=== PATIENT | male | born 1945 | race Two or more races ===

== ENCOUNTER 2016-11-16 08:51 | Day surgery (SDC) | payer MEDICARE, OTHER ==
[~2016-11-16] VITALS: Ht 167.6 cm; Wt 72.6 kg
[2016-11-16] VITALS (9 sets, daily range): BP systolic 140–170; BP diastolic 78–94
[~2016-11-16 08:51] MED LIST: ALLOPURINOL100 M1 ORAL; AMLODIPINE PO; HYDROCHLOROTHIA25 MG ORAL
[2016-11-16] MEDS ORDERED: Lidocaine 1% Plain 30 ml INJ ONE (09:40)
[2016-11-16] MEDS ORDERED: Bacitracin Oint 15gm Tube TOPIC ONE (09:40)
[2016-11-16] MEDS ORDERED: Dexamethasone 4mg/ml vial ONE (09:40)
[2016-11-16] MEDS ORDERED: Betadine 10% Oint 15gm TOPIC ONE (09:40)
[2016-11-16] MEDS ORDERED: Bupivacaine 0.5% Inj 30 ml vial INJ ONE (09:41)
[2016-11-16 09:43] LABS: EOSINOPHILS % (AUTO) 6.5 % (0.0-3.0); LYMPHOCYTES % (AUTO) 28.6 % (20.0-45.0); MEAN CORPUSCULAR HEMOGLOBIN 29.1 PG (27.0-31.0); MEAN CORPUSCULAR HGB CONC 32.9 G/DL (32.0-36.0); MEAN CORPUSCULAR VOLUME 89 FL (80-99); MEAN PLATELET VOLUME 9.2 FL (6.5-10.1); MONOCYTES % (AUTO) 8.3 % (1.0-10.0); NEUTROPHILS % (AUTO) 53.6 % (45.0-75.0); PLATELET COUNT 230 K/UL (150-450); RED CELL DISTRIBUTION WIDTH 13.2 % (11.6-14.8); WHITE BLOOD COUNT 6.1 K/UL (4.8-10.8)
[2016-11-16] MEDS ORDERED: fentaNYL 100 mcg/2 mL IV ONE (09:45)
[2016-11-16] MEDS ORDERED: Midazolam 2mg/2ml Inj ONE (09:45)
[2016-11-16] MEDS ORDERED: LR 1000ml ONE (09:45)
[2016-11-16] MEDS ORDERED: Sterile Water Irrig 1000ml IRRIG ONE (09:45)
[2016-11-16] MEDS ORDERED: Propofol 10mg/ml 20ml IV ONE (09:45)
[2016-11-16 09:54] LABS: ANION GAP 14 (5-15); CALCIUM 9.8 mg/dL (8.6-10.2); CARBON DIOXIDE 22 mEQ/L (20-30); CHLORIDE 99 mEQ/L (98-107); CREATININE 1.6 mg/dL (0.7-1.2); HEMOLYSIS 83; POTASSIUM 4.6 mEQ/L (3.4-4.9); SODIUM 135 mEQ/L (135-145)
[2016-11-16] MEDS ORDERED: NS Irrig 1000ml IRRIG ONE (10:00)
--- NOTE | 2016-11-16 10:10 | Pre-Procedure Note/Attestation ---
Pre-Procedure Note/Attestation Complete Prior to Procedure Planned Procedure: right Procedure Narrative: Bunionectomy with great toe implant right foot Indications for Procedure Pre-Operative Diagnosis: Hallux Rigidus right Attestation I attest that I discussed the nature of the procedure; its benefits; risks and complications; and alternatives (and the risks and benefits of such alternatives ), prior to the procedure, with the patient (or the patient's legal it sales representative). I attest that, if there was a reasonable possibility of needing a blood transfusion, the patient (or the patient's legal it sales representative) was given the [facility] standardized written summary, pursuant to the [facility] Blood Safety Act ([place] Health and Safety Code # 1645, as amended). I attest that I re-evaluated the patient just prior to the surgery and that there has been no change in the patient's H&P, except as documented below: LUZ ELENA CORTEZ Nov 16, 2016 10:10
--- NOTE | 2016-11-16 10:48 | Anethesia Preoperative Eval ---
Anesthesia Pre-op PMH/ROS General Date of Evaluation: Nov 16, 2016 Time of Evaluation: 09:30 Anesthesiologist: JULEE ASA Score: ASA 1 Mallampati Score Class I : Soft palate, uvula, fauces, pillars visible Class II: Soft palate, uvula, fauces visible Class III: Soft palate, base of uvula visible Class IV: Only hard plate visible Mallampati Classification: Class I Allergies: Coded Allergies: No Known Allergies (Unverified , 11/15/16) Anesthesia Pre-op Phys. Exam Physician Exam Last Vital Signs Date Time Temp Pulse Resp B/P Pulse Ox O2 Delivery O2 Flow Rate FiO2 11/16/16 09:29 97.9 78 18 170/90 99 Room Air Anesthesia Pre-op A/P Labs Hematology Test 11/16/16 09:24 White Blood Count 6.1 K/UL (4.8-10.8) Red Blood Count 4.70 M/UL (4.70-6.10) Hemoglobin 13.7 G/DL (14.2-18.0) L Hematocrit 41.7 % (42.0-52.0) L Mean Corpuscular Volume 89 FL (80-99) Mean Corpuscular Hemoglobin 29.1 PG (27.0-31.0) Mean Corpuscular Hemoglobin Concent 32.9 G/DL (32.0-36.0) Red Cell Distribution Width 13.2 % (11.6-14.8) Platelet Count 230 K/UL (150-450) Mean Platelet Volume 9.2 FL (6.5-10.1) Neutrophils (%) (Auto) 53.6 % (45.0-75.0) Lymphocytes (%) (Auto) 28.6 % (20.0-45.0) Monocytes (%) (Auto) 8.3 % (1.0-10.0) Eosinophils (%) (Auto) 6.5 % (0.0-3.0) H Basophils (%) (Auto) 3.0 % (0.0-2.0) H Chemistry Test 11/16/16 09:30 Sodium Level 135 mEQ/L (135-145) Potassium Level 4.6 mEQ/L (3.4-4.9) Chloride Level 99 mEQ/L (98-107) Carbon Dioxide Level 22 mEQ/L (20-30) Anion Gap 14 (5-15) Blood Urea Nitrogen 22 mg/dL (7-23) Creatinine 1.6 mg/dL (0.7-1.2) H Estimat Glomerular Filtration Rate mL/min (>60) Glucose Level 103 mg/dL (74-106) Calcium Level 9.8 mg/dL (8.6-10.2) Trevin Jones MD Nov 16, 2016 10:48
[2016-11-16] MEDS ORDERED: fentaNYL 100 mcg/2 mL IV PRN (11:00)
[2016-11-16] MEDS ORDERED: Ketorolac 30mg Inj IV PRN (11:00)
--- NOTE | 2016-11-16 11:54 | Immediate Post-Op Evaluation ---
Immediate Post-Op Evalulation Immediate Post-Op Evalulation Procedure: R Bunionectomy Date of Evaluation: Nov 16, 2016 Time of Evaluation: 12:00 Estimated Blood Loss: min Nausea: No Vomiting: No Patient Status: awake Hydration Status: adequate Given Within 1 Hr of Incision: Yes Trevin Jones MD Nov 16, 2016 11:54
--- NOTE | 2016-11-16 11:56 | Brief Operative Note ---
Immediate Post Operative Note Operative Note Pre-op Diagnosis: Hallux Rigidus right Procedure: Bunionectomy with great toe implant right foot Post-op Diagnosis: same as pre-op Surgeon: Roe Anesthesiologist: Robert Anesthesia: MAC Specimen: yes Complications: none Condition: stable Estimated Blood Loss: none Drains: none Implant(s) used?: Yes LUZ ELENA CORTEZ Nov 16, 2016 11:56
--- NOTE | 2016-11-16 13:15 | History and Physical Report ---
DATE OF ADMISSION: 11/16/2016 INTERNAL MEDICINE HISTORY AND PHYSICAL REASON FOR EVALUATION: I was asked by Dr. Mehrdad Au, to see this 71-year-old male, who is going for elective surgery on the right foot. The patient has a bunion right foot. The patient was evaluated. Chart was reviewed. PAST MEDICAL HISTORY/REVIEW OF SYSTEMS: Remarkable for history of hypertension, history of gout and degenerative joint disease. The patient has history of stroke and seizures. No history of GI bleeding, liver insufficiency or hepatitis. No history of heart attack. No diabetes mellitus. Denies history of respiratory problem. No renal failure. No prostate problem. PAST SURGICAL HISTORY: Right hip surgery six months ago. MEDICATIONS: Present medications include hydrochlorothiazide 25 mg, allopurinol 100 mg daily, amlodipine also vitamin D and sleeping pills. ALLERGIES: Not known. HABITS: The patient denies history of smoke or alcohol habits. FAMILY HISTORY: Mother has hypertension. Father when patient was 1-year-old. PHYSICAL EXAMINATION: GENERAL: Alert, well-developed, well-nourished male in his 70s, no acute distress. His BMI is 25 kg/m2. The patient is alert, no distress. VITAL SIGNS: Blood pressure on two measurements 170/90, and last one 156/80, the patient is 5 feet 6 inches, and weight 154 pounds. The patient's temperature 97.9 degrees, pulse 78, regular, and O2 saturation 99% on room air. SKIN: Clear and warm. No rashes. No diaphoresis. LYMPHATICS: Lymph nodes not enlarged. HEENT: Head, normocephalic and atraumatic. Ears, clear. Eyes, PERRLA. Extraocular muscles intact. No jaundice or conjunctivitis. Mouth, clear and moist without dentures. Mucous moist and clear. NECK: No jugular venous distention. Carotids artery +2. Trachea midline. CHEST: No deformity or asymmetry. LUNGS: Clear to auscultation percussion. No rales or rhonchi. HEART: Sinus rhythm. No ectopy. No murmur. No S3 or S4. ABDOMEN: Soft. Liver and spleen not enlarged. No rebound. EXTREMITIES: Bunions deformities. Full description per Dr. Mehrdad Au. No peripheral edema. Peripheral pulses equal intact. No varicose veins or calf tenderness. GENITOURINARY TRACT: No CVA tenderness. No dysuria. CENTRAL NERVOUS SYSTEM: No peripheral tremor. No asymmetry. No nystagmus. LABORATORY AND DIAGNOSTIC DATA: Electrocardiogram done shows sinus rhythm, nonspecific ST and T-wave abnormality. Laboratory work pending. The patient's last p.o. intake 7 p.m. yesterday IMPRESSION: 1. Bunion deformity, right foot. 2. Gout. 3. Hypertension. PLAN: Bunionectomy implant on right foot by Dr. Mehrdad Au. CONCLUSION: The patient has history of hypertension, gout. The patient's weight is stable. She did not eat or drink from last night. The patient has no allergies to medication or food. The patient's condition optimized for surgery. Thank you very much, Dr. Au, for privilege to participate presurgical care of this interesting patient. Maliha Lozoya M.D. DR: Nyla JOB#: [id number] CC:
--- NOTE | 2016-11-16 15:20 | Diagnostic Imaging Report ---
Indication: Pain Comparison: None Findings: 3 views of the right foot were obtained. Resection of the first MTP joint with placement of a Silastic implant noted. Alignment is unremarkable. The bones are osteopenic. Marginal spurs noted in the midfoot and narrowing/spur formation involving several interphalangeal joints noted. Impression: Postop confirmation films
--- NOTE | 2016-11-16 17:50 | Cardiology Report ---
APPROVED REPORT EKG Measurement Heart [id number] OR [id number] Normal sinus rhythm Nonspecific ST and T wave abnormality Abnormal ECG
--- NOTE | 2016-11-16 20:46 | History and Physical Report ---
DATE OF ADMISSION: 11/16/2016 PODIATRIC HISTORY AND PHYSICAL HISTORY OF PRESENT ILLNESS: This is a 71-year-old, white male who was admitted today for an outpatient bunionectomy of his right foot. The patient has been under my care for the past few months. He has been complaining of pain and inability to move his great toe joint on both feet. His conservative care, which is consisted of change in shoe gear resulted in no alleviation of pain and discomfort. PAST MEDICAL HISTORY: Remarkable for hypertension. He underwent right hip replacement approximately 6 months go. MEDICATIONS: Allopurinol, hydrochlorothiazide, and amlodipine. ALLERGIES: None. PODIATRIC EXAMINATION: Reveals an antalgic gait. VASCULAR SUPPLY: Dorsalis pedis and posterior tibial arteries are measuring 1/4 bilaterally. The capillary filling time is less than 5 seconds to all digits bilaterally. Homans sign is negative. Mild varicosities are noted in bilateral lower extremities. NEUROLOGICAL EXAMINATION: Reflexes, Achilles and patellar measuring 2/4 bilaterally. The sensation proprioception and vibrations sensation are all intact bilaterally. Clonus is absent. Babinski is negative in bilateral lower extremity. MUSCULOSKELETAL EXAMINATION: Reveals bunion deformity bilaterally. Hallux range of motion is almost zero bilaterally. Pain is noted to palpation over the first ray. Range of motion of all the lesser toe joints are reduced at the level of the metatarsophalangeal joint and mid tarsal and subtalar joint. No crepitation is noted. DERMATOLOGICAL EXAMINATION: Reveals atrophic skin without lesions or scars bilaterally. All nails are present and healthy bilaterally. ASSESSMENT: Hallux rigidus bilaterally. PLAN: The patient is admitted today for bunionectomy with great toe implant on the right foot. Risk, complications and alternatives were discussed with the patient. Postoperative instructions were given. Postoperative medications were dispensed to the patient. The patient elects to proceed with surgery. Mehrdad Au D.P.M. DR: CHAPARRITA JOB#: [id number] CC:
--- NOTE | 2016-11-16 21:01 | Operative Note - Dictated ---
DATE OF OPERATION: 11/16/2016 SURGEON: Mehrdad Au D.P.M. ANESTHESIOLOGIST: Trevin Lee M.D. ANESTHESIA: Local standby. PREOPERATIVE DIAGNOSIS: Hallux rigidus, right foot. POSTOPERATIVE DIAGNOSES: 1. Hallux rigidus, right foot. 2. Tophaceous gout, right first metatarsophalangeal joint. PROCEDURE PERFORMED: 1. Bunionectomy with a Primus flexible great toe implant, right foot. 2. Excision of tophaceous gout, right foot. DESCRIPTION OF THE OPERATION: The patient was brought to the operating room and was placed on the operating room table in the supine position. Intravenous sedation was administered by the anesthesiologist. Local anesthesia consisting of 20 mL of 0.5% Marcaine plain was administered to the right hallux. An ankle tourniquet was applied to the right lower extremity. The foot was prepped and draped in the usual sterile manner. An Esmarch bandage was utilized to exsanguinate the blood and the right ankle tourniquet was inflated to 250 millimeters of mercury. Attention was directed to the right hallux where an approximately 6 to 7 centimeter dorsal curvilinear incision was performed. The incision was deepened utilizing sharp and blunt dissection with care being taken to cauterize and ligate all bleeders. At the level of the capsule and soft tissue, multiple crystals and tophaceous gout were appeared to be present. Those were resected and flushed with sterile saline. At the level of the capsule, a linear capsulotomy was performed. Capsule was reflected plantarly and dorsally. The joint appeared to be nearly fused with numerous bone spurs at the level of the first metatarsal head and base of the proximal phalanx throughout the medial, dorsal and lateral aspects of the joint. Utilizing a sagittal saw, the medial eminence and the exostosis were removed. The remaining bone was rasped smooth. Utilizing a guide with the head of the first metatarsal and base of the proximal phalanx were removed in total. Utilizing a sagittal saw, the remaining bone was rasped smooth. The wound was copiously flushed utilizing sterile saline. At this point, a broach was utilized to create the tunnel for the implant. The broach was drilled proximally into the metatarsal shaft and distally into the proximal phalanx sharp. A sizer was then utilized to assess the position of the implant. The bone was remodeled and flushed again with sterile saline. At this point, a size #40 Primus flexible implant was inserted into the joint. Range of motion appeared to be adequate and the position of the implants was adequate. At this point, the capsule was reapproximated utilizing 3-0 Vicryl in a simple interrupted type stitch. Additional tophi were then excised following the realignment of the digit. The wound was copiously flushed again. The subcutaneous tissue was then reapproximated utilizing 4-0 Vicryl in a simple interrupted type stitch. The skin was then reapproximated utilizing 4-0 nylon in a simple interrupted type stitch. The wound was dressed utilizing an Adaptic 4 x 4 gauze and 3-inch Mickie. The right ankle tourniquet was deflated and vascular supply was noted to all digits right foot. Mehrdad Au D.P.M. DR: COLLEEN JOB#: [id number] CC:
== END 2016-11-16 14:05 | disposition home or self-care (01) ==
LOC: SUR 08:51
DX: M20.21 Hallux rigidus, right foot (principal); M21.611 Bunion of right foot; M1A.9XX1 Chronic gout, unspecified, with tophus (tophi); I10 Essential (primary) hypertension; M19.90 Unspecified osteoarthritis, unspecified site; R56.9 Unspecified convulsions; Z86.73 Personal history of transient ischemic attack (TIA), and cerebral infarction without residual deficits; Z96.641 Presence of right artificial hip joint
CPT/HCPCS: 28291; 36415; 73630; 80048; 85025; 85610; 85730; 93005; C1776; J0690; J2250; J2704; J3010; J3490; J7120; 94003; 94150